=== PATIENT | male | born 1965 | race Caucasian/White ===

== ENCOUNTER 2022-12-25 15:59 | Inpatient (IN) | payer OTHER ==
[2022-12-25 18:12] LABS: BASO % 0.5 % (0-2.0); EOS % 0.6 % (0-4.5); HEMATOCRIT 37.2 % (35.4-49); LYMPH % 18.2 % (8-40); MCH 27.7 pg (25.7-33.7); MCHC 35.1 g/dl (32.0-35.9); MEAN CELL VOLUME 79.1 fl (80-96); NEUT % 73.7 % (42.8-82.8); PLATELET COUNT 296 10^3/uL (134-434); RDW 13.7 % (11.9-15.9); WHITE BLOOD COUNT 8.2 K/mm3 (4.0-10.0)
[2022-12-25 18:18] LABS: INR 1.03 (0.83-1.09)
[2022-12-25 18:21] LABS: ACTIVATED PTT 30.3 SECONDS (25.2-36.5)
[2022-12-25 18:30] LABS: POTASSIUM 5.6 mmol/L (3.5-5.1)
[2022-12-25 18:32] LABS: CALCIUM 9.5 mg/dL (8.5-10.1)
[2022-12-25 18:33] LABS: ALBUMIN 3.6 g/dl (3.4-5.0); BLOOD UREA NITROGEN 15.1 mg/dL (7-18)
[2022-12-25 18:36] LABS: CREATININE 0.8 mg/dL (0.55-1.3)
[2022-12-25 18:37] LABS: TOT PROT 7.9 g/dl (6.4-8.2)
[2022-12-25 18:38] LABS: BILIRUBIN,TOTAL 0.6 mg/dL (0.2-1)
[2022-12-25] MEDS ORDERED: VANCOMYCIN 1 GM in D5W (PRE-DOCKED) 1,000 MG/250 ML (RESTRICTED TO ID ONLY IVPB ONE (19:12)
[2022-12-25] MEDS ORDERED: PIPERACILLIN/TAZOB 3.375 GM 3.375 GM in DEXTROSE 5%-WATER - 50 ML IVPB ONE (19:13)
[2022-12-25] MEDS ORDERED: VANCOMYCIN/WATER FOR INJ (PEG) 1,000 MG/200 ML BAG IVPB ONE (19:34)
[2022-12-25] MEDS ORDERED: PIPERACILLIN/TAZOB 3.375 GM 3.375 GM/50 ML BAG IVPB ONE (19:34)
[2022-12-25] MEDS ORDERED: ACETAMINOPHEN 325 MG TABLET (FP) PO PRN (19:41)
[2022-12-25 19:58] LABS: BLOOD UREA NITROGEN 14.8 mg/dL (7-18); CALCIUM 9.7 mg/dL (8.5-10.1)
[2022-12-25 20:02] LABS: CREATININE 0.7 mg/dL (0.55-1.3)
[2022-12-25 21:03] LABS: URINE APPEARANCE CLEAR; URINE BILIRUBIN NEGATIVE (NEGATIVE); URINE COLOR YELLOW; URINE GLUCOSE (UA) 1+ (NEGATIVE); URINE KETONE NEGATIVE (NEGATIVE); URINE LEUK ESTERASE NEGATIVE (NEGATIVE); URINE NITRITE NEGATIVE (NEGATIVE); URINE PROTEIN NEGATIVE (NEGATIVE)
[2022-12-25] MEDS: INSULIN SLIDING SCALE (NOVOLOG) 1 VIAL SQ SCH (22:55)
[2022-12-25 23:54] VITALS: BMI 34.9
[2022-12-26] MEDS: PIPERACILLIN/TAZOB 3.375 GM 3.375 GM in DEXTROSE 5%-WATER - 50 ML IVPB SCH ×4 (03:42→20:25)
[2022-12-26] MEDS: INSULIN SLIDING SCALE (NOVOLOG) 1 VIAL SQ SCH ×4 (06:50→21:07)
[2022-12-26 07:56] LABS: POTASSIUM 3.9 mmol/L (3.5-5.1)
[2022-12-26 08:00] LABS: BLOOD UREA NITROGEN 15.8 mg/dL (7-18); CALCIUM 8.5 mg/dL (8.5-10.1); MAGNESIUM 2.1 mg/dL (1.8-2.4)
[2022-12-26] MEDS ORDERED: VANCOMYCIN HCL 1,500 MG in DEXTROSE 5%-WATER - 250 ML IVPB SCH (08:00)
[2022-12-26 08:04] LABS: CREATININE 0.8 mg/dL (0.55-1.3)
[2022-12-26 08:18] LABS: BASO % 0.5 % (0-2.0); EOS % 1.5 % (0-4.5); HEMATOCRIT 34.4 % (35.4-49); HEMOGLOBIN 12.2 GM/dL (11.7-16.9); LYMPH % 22.4 % (8-40); MCH 27.7 pg (25.7-33.7); MCHC 35.4 g/dl (32.0-35.9); MEAN CELL VOLUME 78.4 fl (80-96); MEAN PLT VOLUME 7.7 fl (7.5-11.1); NEUT % 68.6 % (42.8-82.8); PLATELET COUNT 250 10^3/uL (134-434); RBC 4.38 M/mm3 (4.00-5.60); RDW 13.4 % (11.9-15.9); WHITE BLOOD COUNT 6.8 K/mm3 (4.0-10.0)
[2022-12-26] MEDS: VANCOMYCIN PREMIX 1.5 GM 1,500 MG/300 ML BAG IVPB SCH ×2 (09:40→21:01)
[2022-12-26] MEDS: ENOXAPARIN NA (PORCINE) 40 MG/0.4 ML DISP.SYRIN SQ SCH (09:45)
[2022-12-26] MEDS ORDERED: INSULIN (NOVOLOG) ASPART 100 UNITS/ML 10ML VIAL ONE (19:16)
[2022-12-27] MEDS: INSULIN SLIDING SCALE (NOVOLOG) 1 VIAL SQ SCH ×4 (06:06→21:39)
[2022-12-27 07:16] LABS: BASO % 0.6 % (0-2.0); EOS % 1.3 % (0-4.5); HEMATOCRIT 35.3 % (35.4-49); HEMOGLOBIN 12.6 GM/dL (11.7-16.9); LYMPH % 22.5 % (8-40); MCHC 35.7 g/dl (32.0-35.9); MEAN CELL VOLUME 78.5 fl (80-96); MONO % 7.4 % (3.8-10.2); NEUT % 68.2 % (42.8-82.8); PLATELET COUNT 264 10^3/uL (134-434); RBC 4.49 M/mm3 (4.00-5.60); RDW 13.8 % (11.9-15.9)
[2022-12-27 07:29] LABS: POTASSIUM 3.8 mmol/L (3.5-5.1)
[2022-12-27 07:32] LABS: BLOOD UREA NITROGEN 14.3 mg/dL (7-18); CALCIUM 8.8 mg/dL (8.5-10.1)
[2022-12-27 07:33] LABS: ALBUMIN 3.4 g/dl (3.4-5.0)
[2022-12-27 07:35] LABS: CREATININE 0.7 mg/dL (0.55-1.3)
[2022-12-27 07:37] LABS: BILIRUBIN,TOTAL 0.8 mg/dL (0.2-1); TOT PROT 6.9 g/dl (6.4-8.2)
[2022-12-27] MEDS: ENOXAPARIN NA (PORCINE) 40 MG/0.4 ML DISP.SYRIN SQ SCH (09:55)
[2022-12-27] MEDS: PIPERACILLIN/TAZOB 3.375 GM 3.375 GM in DEXTROSE 5%-WATER - 50 ML IVPB SCH (15:48)
[2022-12-27] MEDS: CEFTRIAXONE 2 GM in DEXTROSE 5%-WATER 100 ML IVPB SCH (16:26)
[2022-12-28] MEDS: INSULIN SLIDING SCALE (NOVOLOG) 1 VIAL SQ SCH ×4 (06:13→21:40)
[2022-12-28] MEDS ORDERED: amLODIPine BESYLATE 5 MG TABLET (FP) PO SCH (10:00)
[2022-12-28] MEDS: CEFTRIAXONE 2 GM in DEXTROSE 5%-WATER 100 ML IVPB SCH (10:08)
[2022-12-28] MEDS: LOSARTAN POTASSIUM 25 MG TABLET PO SCH (10:08)
[2022-12-28] MEDS: ENOXAPARIN NA (PORCINE) 40 MG/0.4 ML DISP.SYRIN SQ SCH (10:08)
[2022-12-28] MEDS ORDERED: INSULIN (NOVOLOG MIX 70/30) 100 UNITS/ML MDV SQ ONE (11:37)
[2022-12-28 13:43] LABS: BASO % 0.4 % (0-2.0); EOS % 0.8 % (0-4.5); HEMATOCRIT 39.4 % (35.4-49); HEMOGLOBIN 13.8 GM/dL (11.7-16.9); MCHC 35.1 g/dl (32.0-35.9); MEAN CELL VOLUME 79.7 fl (80-96); MEAN PLT VOLUME 7.9 fl (7.5-11.1); MONO % 6.8 % (3.8-10.2); PLATELET COUNT 299 10^3/uL (134-434); RBC 4.94 M/mm3 (4.00-5.60); RDW 13.7 % (11.9-15.9); WHITE BLOOD COUNT 6.4 K/mm3 (4.0-10.0)
[2022-12-28 14:00] LABS: POTASSIUM 4.5 mmol/L (3.5-5.1)
[2022-12-28 14:03] LABS: CALCIUM 9.1 mg/dL (8.5-10.1)
[2022-12-28 14:04] LABS: ALBUMIN 3.6 g/dl (3.4-5.0); BLOOD UREA NITROGEN 15.4 mg/dL (7-18)
[2022-12-28 14:07] LABS: CREATININE 0.8 mg/dL (0.55-1.3); PHOSPHOROUS 3.3 mg/dL (2.5-4.9)
[2022-12-28 14:09] LABS: BILIRUBIN,TOTAL 0.6 mg/dL (0.2-1); TOT PROT 7.5 g/dl (6.4-8.2)
[2022-12-29] MEDS: INSULIN SLIDING SCALE (NOVOLOG) 1 VIAL SQ SCH ×4 (06:04→21:18)
[2022-12-29] MEDS: LOSARTAN POTASSIUM 25 MG TABLET PO SCH (09:57)
[2022-12-29] MEDS: CEFTRIAXONE 2 GM in DEXTROSE 5%-WATER 100 ML IVPB SCH (09:57)
[2022-12-29] MEDS: ENOXAPARIN NA (PORCINE) 40 MG/0.4 ML DISP.SYRIN SQ SCH (09:57)
[2022-12-29] MEDS: metFORMIN HCL 500 MG TABLET (FP) PO SCH (17:46)
[2022-12-29] MEDS: GLIMEPIRIDE 4 MG TABLET PO SCH ×2 (17:49→18:03)
[2022-12-30] MEDS: metFORMIN HCL 500 MG TABLET (FP) PO SCH ×2 (06:03→17:03)
[2022-12-30] MEDS: INSULIN SLIDING SCALE (NOVOLOG) 1 VIAL SQ SCH ×4 (06:04→21:48)
[2022-12-30] MEDS: GLIMEPIRIDE 4 MG TABLET PO SCH ×2 (06:04→17:03)
[2022-12-30] MEDS: LOSARTAN POTASSIUM 25 MG TABLET PO SCH (09:59)
[2022-12-30] MEDS: ENOXAPARIN NA (PORCINE) 40 MG/0.4 ML DISP.SYRIN SQ SCH (09:59)
[2022-12-31] MEDS: GLIMEPIRIDE 4 MG TABLET PO SCH ×2 (06:18→16:34)
[2022-12-31] MEDS: INSULIN SLIDING SCALE (NOVOLOG) 1 VIAL SQ SCH ×4 (06:18→21:56)
[2022-12-31] MEDS: metFORMIN HCL 500 MG TABLET (FP) PO SCH ×2 (06:18→16:35)
[2022-12-31] MEDS: ENOXAPARIN NA (PORCINE) 40 MG/0.4 ML DISP.SYRIN SQ SCH (09:58)
[2022-12-31] MEDS: LOSARTAN POTASSIUM 25 MG TABLET PO SCH (09:58)
[2023-01-01] MEDS: metFORMIN HCL 500 MG TABLET (FP) PO SCH ×2 (06:27→17:22)
[2023-01-01] MEDS: GLIMEPIRIDE 4 MG TABLET PO SCH (06:27)
[2023-01-01] MEDS: INSULIN SLIDING SCALE (NOVOLOG) 1 VIAL SQ SCH ×4 (06:28→22:26)
[2023-01-01] MEDS: LOSARTAN POTASSIUM 25 MG TABLET PO SCH (09:04)
[2023-01-01] MEDS ORDERED: ONDANSETRON 4 MG/2 ML VIAL IVPUSH PRN ×2 (15:33→16:41)
[2023-01-01] MEDS ORDERED: PROMETHAZINE HCL 25 MG/1 ML VIAL IVPB PRN ×2 (15:33→16:41)
[2023-01-01] MEDS ORDERED: MIDAZOLAM HCL 2 MG/2 ML SINGLE DOSE VIAL ONE (15:38)
[2023-01-01] MEDS ORDERED: PROPOFOL 20 ML ONE (15:39)
[2023-01-01] MEDS ORDERED: LIDOCAINE HCL/PF 2% SDV 5ML VIAL ONE (15:40)
[2023-01-01] MEDS ORDERED: LACTATED RINGERS SOLUTION 1,000 ML IV SCH (15:45)
[2023-01-01] MEDS ORDERED: BUPIVACAINE HCL/PF 0.5% (5 MG/ML) 30 ML VIAL IJ ONE (16:01)
[2023-01-01] MEDS ORDERED: GENTAMICIN SO4 80 MG/2 ML VIAL ONE (16:10)
[2023-01-01] MEDS ORDERED: KETOROLAC TROMETHAMINE 30 MG/1 ML VIAL ONE (16:27)
[2023-01-01] MEDS ORDERED: ACETAMINOPHEN 325 MG TABLET (FP) PO PRN (16:41)
[2023-01-01] MEDS: LACTATED RINGERS SOLUTION 1,000 ML IV SCH ×2 (17:15→17:34)
[2023-01-02] MEDS: LACTATED RINGERS SOLUTION 1,000 ML IV SCH (02:36)
[2023-01-02] MEDS: GLIMEPIRIDE 4 MG TABLET PO SCH ×2 (06:11→15:54)
[2023-01-02] MEDS: metFORMIN HCL 500 MG TABLET (FP) PO SCH ×2 (06:11→17:28)
[2023-01-02] MEDS: INSULIN SLIDING SCALE (NOVOLOG) 1 VIAL SQ SCH ×4 (06:11→21:33)
[2023-01-02 08:20] LABS: HEMATOCRIT 34.6 % (35.4-49); HEMOGLOBIN 12.2 GM/dL (11.7-16.9); MCHC 35.2 g/dl (32.0-35.9); MEAN CELL VOLUME 79.5 fl (80-96); MEAN PLT VOLUME 8.3 fl (7.5-11.1); PLATELET COUNT 180 10^3/uL (134-434); RBC 4.35 M/mm3 (4.00-5.60); RDW 13.7 % (11.9-15.9); WHITE BLOOD COUNT 5.5 K/mm3 (4.0-10.0)
[2023-01-02 08:37] LABS: POTASSIUM 3.9 mmol/L (3.5-5.1)
[2023-01-02 08:40] LABS: ALBUMIN 3.3 g/dl (3.4-5.0); BLOOD UREA NITROGEN 22.7 mg/dL (7-18); CALCIUM 8.9 mg/dL (8.5-10.1)
[2023-01-02 08:44] LABS: CREATININE 0.9 mg/dL (0.55-1.3)
[2023-01-02 08:45] LABS: BILIRUBIN,TOTAL 0.6 mg/dL (0.2-1); TOT PROT 6.5 g/dl (6.4-8.2)
[2023-01-02] MEDS: CEFTRIAXONE 2 GM in DEXTROSE 5%-WATER 100 ML IVPB SCH (09:32)
[2023-01-02] MEDS: ENOXAPARIN NA (PORCINE) 40 MG/0.4 ML DISP.SYRIN SQ SCH (09:33)
[2023-01-02] MEDS: LOSARTAN POTASSIUM 25 MG TABLET PO SCH (09:33)
[2023-01-02] MEDS ORDERED: INSULIN (NOVOLOG) ASPART 100 UNITS/ML 10ML VIAL ONE (21:21)
[2023-01-03] MEDS: GLIMEPIRIDE 4 MG TABLET PO SCH ×2 (06:58→16:20)
[2023-01-03] MEDS: metFORMIN HCL 500 MG TABLET (FP) PO SCH ×2 (06:59→16:56)
[2023-01-03] MEDS: INSULIN SLIDING SCALE (NOVOLOG) 1 VIAL SQ SCH ×4 (06:59→21:50)
[2023-01-03] MEDS: CEFTRIAXONE 2 GM in DEXTROSE 5%-WATER 100 ML IVPB SCH (10:07)
[2023-01-03] MEDS: LOSARTAN POTASSIUM 25 MG TABLET PO SCH (10:07)
[2023-01-03] MEDS: ENOXAPARIN NA (PORCINE) 40 MG/0.4 ML DISP.SYRIN SQ SCH (10:08)
[2023-01-03] MEDS: COLLAGENASE CLOSTRIDIUM HIST. 30 GRAMS TUBE TP SCH (13:18)
[2023-01-03] MEDS ORDERED: DOCUSATE SODIUM 100 MG CAPSULE (FP) PO PRN (17:30)
[2023-01-03] MEDS ORDERED: INSULIN (NOVOLOG) ASPART 100 UNITS/ML 10ML VIAL ONE (21:16)
[2023-01-04] MEDS: metFORMIN HCL 500 MG TABLET (FP) PO SCH ×2 (06:13→16:31)
[2023-01-04] MEDS: INSULIN SLIDING SCALE (NOVOLOG) 1 VIAL SQ SCH ×4 (06:14→22:07)
[2023-01-04] MEDS: GLIMEPIRIDE 4 MG TABLET PO SCH ×2 (06:14→16:31)
[2023-01-04 08:17] LABS: BASO % 0.5 % (0-2.0); EOS % 1.4 % (0-4.5); HEMATOCRIT 38.4 % (35.4-49); HEMOGLOBIN 13.2 GM/dL (11.7-16.9); LYMPH % 25.8 % (8-40); MCH 27.6 pg (25.7-33.7); MCHC 34.4 g/dl (32.0-35.9); MEAN CELL VOLUME 80.3 fl (80-96); MONO % 9.2 % (3.8-10.2); NEUT % 63.1 % (42.8-82.8); PLATELET COUNT 185 10^3/uL (134-434); RBC 4.78 M/mm3 (4.00-5.60); RDW 13.8 % (11.9-15.9); WHITE BLOOD COUNT 5.8 K/mm3 (4.0-10.0)
[2023-01-04 08:21] LABS: INR 1.03 (0.83-1.09)
[2023-01-04 08:36] LABS: POTASSIUM 4.4 mmol/L (3.5-5.1)
[2023-01-04 08:39] LABS: ALBUMIN 3.6 g/dl (3.4-5.0); BLOOD UREA NITROGEN 15.5 mg/dL (7-18); CALCIUM 9.5 mg/dL (8.5-10.1); MAGNESIUM 2.1 mg/dL (1.8-2.4)
[2023-01-04 08:42] LABS: CREATININE 0.9 mg/dL (0.55-1.3)
[2023-01-04 08:44] LABS: BILIRUBIN,TOTAL 0.6 mg/dL (0.2-1)
[2023-01-04] MEDS: CEFTRIAXONE 2 GM in DEXTROSE 5%-WATER 100 ML IVPB SCH (09:08)
[2023-01-04] MEDS: ENOXAPARIN NA (PORCINE) 40 MG/0.4 ML DISP.SYRIN SQ SCH (09:09)
[2023-01-04] MEDS: LOSARTAN POTASSIUM 25 MG TABLET PO SCH (09:11)
[2023-01-04] MEDS: COLLAGENASE CLOSTRIDIUM HIST. 30 GRAMS TUBE TP SCH (09:12)
[2023-01-04] MEDS ORDERED: INSULIN (NOVOLOG) ASPART 100 UNITS/ML 10ML VIAL ONE (21:14)
[2023-01-05] MEDS: metFORMIN HCL 500 MG TABLET (FP) PO SCH ×2 (06:18→16:28)
[2023-01-05] MEDS: INSULIN SLIDING SCALE (NOVOLOG) 1 VIAL SQ SCH ×4 (06:19→23:03)
[2023-01-05] MEDS: GLIMEPIRIDE 4 MG TABLET PO SCH ×2 (06:19→16:29)
[2023-01-05] MEDS ORDERED: INSULIN (NOVOLOG) ASPART 100 UNITS/ML 10ML VIAL ONE (10:05)
[2023-01-05] MEDS: LOSARTAN POTASSIUM 25 MG TABLET PO SCH (10:19)
[2023-01-05] MEDS: ENOXAPARIN NA (PORCINE) 40 MG/0.4 ML DISP.SYRIN SQ SCH (10:19)
[2023-01-05] MEDS: CEFTRIAXONE 2 GM in DEXTROSE 5%-WATER 100 ML IVPB SCH (10:20)
[2023-01-05] MEDS: COLLAGENASE CLOSTRIDIUM HIST. 30 GRAMS TUBE TP SCH (10:21)
[2023-01-05 10:26] LABS: BASO % 0.6 % (0-2.0); HEMATOCRIT 39.8 % (35.4-49); HEMOGLOBIN 13.6 GM/dL (11.7-16.9); LYMPH % 23.1 % (8-40); MCH 27.4 pg (25.7-33.7); MCHC 34.2 g/dl (32.0-35.9); MEAN CELL VOLUME 80.2 fl (80-96); MEAN PLT VOLUME 8.4 fl (7.5-11.1); MONO % 7.6 % (3.8-10.2); NEUT % 67.7 % (42.8-82.8); PLATELET COUNT 194 10^3/uL (134-434); RBC 4.96 M/mm3 (4.00-5.60); RDW 13.7 % (11.9-15.9); WHITE BLOOD COUNT 5.3 K/mm3 (4.0-10.0)
[2023-01-05 11:09] LABS: POTASSIUM 4.1 mmol/L (3.5-5.1)
[2023-01-05 11:21] LABS: BLOOD UREA NITROGEN 17.5 mg/dL (7-18)
[2023-01-05 11:22] LABS: CALCIUM 9.4 mg/dL (8.5-10.1); MAGNESIUM 2.1 mg/dL (1.8-2.4)
[2023-01-05 11:23] LABS: CREATININE 0.8 mg/dL (0.55-1.3)
[2023-01-05 11:24] LABS: BILIRUBIN,TOTAL 0.7 mg/dL (0.2-1); TOT PROT 7.7 g/dl (6.4-8.2)
[2023-01-06] MEDS: metFORMIN HCL 500 MG TABLET (FP) PO SCH ×2 (06:30→16:27)
[2023-01-06] MEDS: GLIMEPIRIDE 4 MG TABLET PO SCH ×2 (06:30→16:26)
[2023-01-06] MEDS: INSULIN SLIDING SCALE (NOVOLOG) 1 VIAL SQ SCH ×3 (06:36→17:02)
[2023-01-06 08:09] LABS: BASO % 0.6 % (0-2.0); EOS % 1.3 % (0-4.5); HEMATOCRIT 37.6 % (35.4-49); LYMPH % 23.3 % (8-40); MCH 27.6 pg (25.7-33.7); MCHC 34.5 g/dl (32.0-35.9); MEAN PLT VOLUME 8.6 fl (7.5-11.1); MONO % 8.4 % (3.8-10.2); NEUT % 66.4 % (42.8-82.8); PLATELET COUNT 187 10^3/uL (134-434); RBC 4.69 M/mm3 (4.00-5.60); RDW 14.2 % (11.9-15.9); WHITE BLOOD COUNT 5.7 K/mm3 (4.0-10.0)
[2023-01-06 08:19] LABS: POTASSIUM 3.9 mmol/L (3.5-5.1)
[2023-01-06 08:21] LABS: ALBUMIN 3.6 g/dl (3.4-5.0); BLOOD UREA NITROGEN 18.6 mg/dL (7-18)
[2023-01-06 08:24] LABS: CREATININE 0.8 mg/dL (0.55-1.3)
[2023-01-06 08:26] LABS: BILIRUBIN,TOTAL 0.6 mg/dL (0.2-1)
[2023-01-06] MEDS: LOSARTAN POTASSIUM 25 MG TABLET PO SCH (10:00)
[2023-01-06] MEDS: CEFTRIAXONE 2 GM in DEXTROSE 5%-WATER 100 ML IVPB SCH (10:00)
[2023-01-06] MEDS: ENOXAPARIN NA (PORCINE) 40 MG/0.4 ML DISP.SYRIN SQ SCH (10:01)
[2023-01-06 11:06] VITALS: RESP 20
[2023-01-06 15:36] VITALS: BP 162/85; PULSE 84; TEMP 97.8
[2023-01-06] MEDS: COLLAGENASE CLOSTRIDIUM HIST. 30 GRAMS TUBE TP SCH (15:39)
== END 2023-01-06 17:40 | disposition home health service (06) | DRG 344 ==
LOC: JER 15:59 → JERBED 17:12 → J7W 21:15
PROVIDERS: ADMIT Internal Medicine; ATTEND Internal Medicine
PROC: 0QBQ3ZX Excision of Right Toe Phalanx, Percutaneous Approach, Diagnostic (ICD-10-PCS; 2023-01-01)
PROC: 079T3ZX Drainage of Bone Marrow, Percutaneous Approach, Diagnostic (ICD-10-PCS; principal; 2023-01-01 14:00)
PROC: 02HV33Z Insertion of Infusion Device into Superior Vena Cava, Percutaneous Approach (ICD-10-PCS; 2023-01-06)
PROC: B518ZZA Fluoroscopy of Superior Vena Cava, Guidance (ICD-10-PCS; 2023-01-06)
DX: E11.69 Type 2 diabetes mellitus with other specified complication (principal); M86.9 Osteomyelitis, unspecified; E11.621 Type 2 diabetes mellitus with foot ulcer; E11.319 Type 2 diabetes mellitus with unspecified diabetic retinopathy without macular edema; E11.52 Type 2 diabetes mellitus with diabetic peripheral angiopathy with gangrene; L03.116 Cellulitis of left lower limb; E66.9 Obesity, unspecified; Z68.35 Body mass index [BMI] 35.0-35.9, adult
CPT/HCPCS: 0241U-QW; 36415; 36569; 73630-TC-RT-FY; 73718-TC-RT; 80048; 80053; 81003; 82962; 83036; 83605; 83735; 84100; 85025; 85027; 85610; 85651; 85730; 86140; 86850; 86900; 86901; 87040; 87070; 87075; 87086; 87186; 87205; 93005; 93010; 93926-TC; 93971-TC; 94760; 97597; 99285-25